=== PATIENT | male | born 1955 | race African-American/Black ===

== ENCOUNTER 2019-01-21 13:45 | Inpatient (IN) | payer MEDICARE, MEDICAID ==
[~2019-01-21] VITALS: Ht 177.8 cm; Wt 86.6 kg
[2019-01-21] VITALS (13 sets, daily range): BP systolic 105–168; BP diastolic 63–119
[2019-01-21 14:23] LABS: HEMOGLOBIN. 12.6 g/dL (14.0-18.0); MEAN CORPUSCULAR HEMOGLOBIN 30.4 pg (28.0-32.0); MEAN CORPUSCULAR VOLUME 89.6 fL (80.0-94.0); MEAN PLATELET VOLUME 9.3 fl (7.4-10.4); PLATELET 84 x1000/uL (130-400); RED BLOOD CELL COUNT 4.13 mill/uL (4.7-6.1)
[2019-01-21 14:30] LABS: INR 1.1; PROTHROMBIN TIME 11.1 sec (9.6-11.0)
[2019-01-21 14:31] LABS: CHLORIDE 106 mEq/L (98-107)
[2019-01-21 14:35] LABS: ETHANOL BLOOD < 10 mg/dL
[2019-01-21 15:10] LABS: PLATELET ESTIMATE DECREASED
[2019-01-21] MEDS ORDERED: ASPIRIN 325MG TABLET PO ONE (15:30)
[2019-01-21] MEDS ORDERED: DEXAMETHASONE 10 MG/ML VIAL IV ONE (15:30)
[2019-01-21 16:23] LABS: CLARITY URINE CLEAR (CLEAR); COLOR URINE YELLOW (YELLOW); KETONES URINE NEGATIVE (NEGATIVE); LEUKOCYTE ESTERASE URINE NEGATIVE (NEGATIVE); NITRITE URINE NEGATIVE (NEGATIVE); OCCULT BLOOD URINE NEGATIVE (NEGATIVE); PH URINE 5.5 (4.5-8.0); PROTEIN URINE NEGATIVE (NEGATIVE); SPECIFIC GRAVITY URINE 1.013 (1.005-1.030); UROBILINOGEN URINE 0.2 E.U./dL (0.2-1.0)
[2019-01-21 16:35] LABS: *AMPHETAMINES SCREEN URINE NEGATIVE (NEGATIVE); *BARBITURATES SCREEN URINE NEGATIVE (NEGATIVE); *BENZODIAZEPINES SCREEN URINE NEGATIVE (NEGATIVE); *COCAINE SCREEN URINE NEGATIVE (NEGATIVE)
[2019-01-21 16:36] LABS: CANNABINOID URINE SCREEN NEGATIVE (NEGATIVE); METHADONE URINE SCREEN NEGATIVE (NEGATIVE); OPIATES URINE SCREEN NEGATIVE (NEGATIVE); PHENCYCLIDINE URINE SCREEN NEGATIVE (NEGATIVE)
[2019-01-21] MEDS ORDERED: KETOROLAC 30MG/ML VIAL IV ONE (18:00)
[2019-01-21] MEDS ORDERED: LEVETIRACETAM 500MG PREMIX 100 ML IV ONE (19:30)
[2019-01-21] MEDS ORDERED: ONDANSETRON HCL 4MG/2ML INJ IV ONE (19:30)
[2019-01-21] MEDS ORDERED: MORPHINE SULFATE 2 MG/ML CPJ (NOT FOR IM USE) IV PRN (19:30)
[2019-01-21] MEDS ORDERED: MORPHINE SULFATE 4 MG/ML CPJ (NOT FOR IM USE) IV ONE (19:30)
[2019-01-21] MEDS ORDERED: IPRATROPIUM/ALBUTEROL 0.5-3(2.5)MG/3ML NEB INH PRN (20:15)
[2019-01-21] MEDS ORDERED: ONDANSETRON HCL 4MG/2ML INJ IV PRN (20:15)
[2019-01-21] MEDS ORDERED: ACETAMINOPHEN 650MG SUPP PR PRN (20:15)
[2019-01-21] MEDS ORDERED: LORAZEPAM 2MG/ML CPJ IV PRN (20:15)
[2019-01-21 20:45] LABS: T4 FREE 0.67 ng/dL (0.76-1.46)
[2019-01-21] MEDS ORDERED: NICARDIPINE 100 MG in SODIUM CHLORIDE 0.9% 60 ML IV PRN (21:30)
[2019-01-21] MEDS: NICARDIPINE 100 MG in SODIUM CHLORIDE 0.9% 60 ML IV PRN (22:03)
[2019-01-21] MEDS: DEXT 5%/LACTATED RINGERS 1,000 ML IV SCH (22:04)
[2019-01-21 22:11] LABS: FOLIC ACID (FOLATE) SERUM 15.8 ng/mL (>5.38)
[2019-01-21] MEDS ORDERED: LEVETIRACETAM 500MG in SODIUM CHLORIDE 0.9% 100ML IV NR (22:30)
[2019-01-21 23:07] LABS: CREATINE KINASE MB FRACTION 5.3 ng/mL (0.5-3.6)
[2019-01-22] VITALS (91 sets, daily range): BP systolic 83–176; BP diastolic 24–111
[2019-01-22] MEDS: DEXAMETHASONE 4MG/ML 1ML VIAL IV SCH ×4 (02:19→18:39)
[2019-01-22 05:49] LABS: CREATINE KINASE MB FRACTION 6.1 ng/mL (0.5-3.6)
[2019-01-22] MEDS ORDERED: LEVE500T19 PO (07:38)
[2019-01-22] MEDS ORDERED: SPIR50TA5 PO (07:38)
[2019-01-22] MEDS ORDERED: HYDR100T26 MT (07:38)
[2019-01-22] MEDS ORDERED: CALC0.5C10 PO (07:38)
[2019-01-22] MEDS ORDERED: APIX5TAB PO (07:38)
[2019-01-22] MEDS ORDERED: TRAZ-251 PO (07:38)
[2019-01-22] MEDS ORDERED: DEXA4TAB PO (07:38)
[2019-01-22] MEDS ORDERED: BENA40TA9 PO (07:38)
[2019-01-22] MEDS ORDERED: NIFE20CA PO (07:38)
[2019-01-22] MEDS ORDERED: LABE200T28 PO (07:38)
[2019-01-22] MEDS ORDERED: MAGN400C PO (07:38)
[2019-01-22] MEDS ORDERED: PROT40 PO (07:38)
[2019-01-22] MEDS: PANTOPRAZOLE SODIUM 40 MG/VIAL IV SCH (08:48)
[2019-01-22] MEDS: LEVETIRACETAM 500MG in SODIUM CHLORIDE 0.9% 100ML IV SCH ×2 (08:49→22:59)
[2019-01-22] MEDS ORDERED: LEVETIRACETAM 500MG PREMIX 100 ML IV SCH (09:00)
[2019-01-22] MEDS: DEXT 5%/LACTATED RINGERS 1,000 ML IV SCH (18:40)
[2019-01-23] VITALS (63 sets, daily range): BP systolic 108–171; BP diastolic 46–124
[2019-01-23] MEDS: DEXAMETHASONE 4MG/ML 1ML VIAL IV SCH ×4 (00:50→17:52)
[2019-01-23 05:13] LABS: HEMATOCRIT. 36.8 % (42.0-52.0); HEMOGLOBIN. 12.5 g/dL (14.0-18.0); MEAN CORPUSCULAR HEMOGLOBIN 30.4 pg (28.0-32.0); MEAN CORPUSCULAR VOLUME 89.7 fL (80.0-94.0); MEAN PLATELET VOLUME 9.7 fl (7.4-10.4); PLATELET 88 x1000/uL (130-400); RED CELL DISTRIBUTION WIDTH 14.9 % (11.6-14.6)
[2019-01-23] MEDS: NICARDIPINE 100 MG in SODIUM CHLORIDE 0.9% 60 ML IV PRN (06:44)
[2019-01-23 07:17] LABS: PLATELET ESTIMATE SLIGHTLY DECREASED
[2019-01-23] MEDS: LEVETIRACETAM 500MG in SODIUM CHLORIDE 0.9% 100ML IV SCH ×2 (09:07→21:36)
[2019-01-23] MEDS ORDERED: CLONIDINE 0.1MG TABLET PO PRN (09:30)
[2019-01-23] MEDS: LABETALOL HCL 300MG TABLET PO SCH ×2 (11:45→21:36)
[2019-01-23] MEDS: DOCUSATE SODIUM SUGAR FREE 100MG/10ML UDC NG SCH ×2 (11:45→17:52)
[2019-01-23] MEDS: FUROSEMIDE 40MG/4ML VIAL IVP SCH ×2 (11:46→17:52)
[2019-01-23] MEDS: NIFEDIPINE XL 60MG TAB PO SCH (11:46)
[2019-01-23] MEDS: PANTOPRAZOLE SODIUM 40 MG/VIAL IV SCH (13:00)
[2019-01-23] MEDS: DEXT 5%/LACTATED RINGERS 1,000 ML IV SCH ×2 (13:01→23:30)
[2019-01-23] MEDS: HYDRALAZINE HCL 100MG TABLET PO SCH ×2 (13:01→21:36)
[2019-01-23] MEDS: SPIRONOLACTONE 25MG TABLET PO SCH (17:52)
[2019-01-23] MEDS ORDERED: LACTULOSE 20G/30ML UDC PO PRN (21:00)
[2019-01-24] VITALS (17 sets, daily range): BP systolic 94–128; BP diastolic 52–77
[2019-01-24] MEDS: DEXAMETHASONE 4MG/ML 1ML VIAL IV SCH ×3 (00:09→11:39)
[2019-01-24] MEDS: HYDRALAZINE HCL 100MG TABLET PO SCH ×2 (06:21→20:57)
[2019-01-24] MEDS: SPIRONOLACTONE 25MG TABLET PO SCH (06:21)
[2019-01-24] MEDS: FUROSEMIDE 40MG/4ML VIAL IVP SCH (07:15)
[2019-01-24] MEDS: PANTOPRAZOLE SODIUM 40 MG/VIAL IV SCH (08:00)
[2019-01-24] MEDS: LEVETIRACETAM 500MG in SODIUM CHLORIDE 0.9% 100ML IV SCH (08:00)
[2019-01-24] MEDS: DOCUSATE SODIUM SUGAR FREE 100MG/10ML UDC NG SCH (08:01)
[2019-01-24] MEDS: NIFEDIPINE XL 60MG TAB PO SCH (08:01)
[2019-01-24] MEDS: LABETALOL HCL 300MG TABLET PO SCH ×2 (08:01→20:58)
[2019-01-24] MEDS ORDERED: DEXAMETHASONE 4MG/ML 1ML VIAL PO SCH (12:00)
[2019-01-24] MEDS ORDERED: DOCUSATE SODIUM SUGAR FREE 100MG/10ML UDC PO SCH (17:00)
[2019-01-24] MEDS ORDERED: DEXAMETHASONE 4MG TABLET PO SCH (18:00)
[2019-01-24] MEDS: FUROSEMIDE 40MG TABLET PO SCH (20:56)
[2019-01-24] MEDS: LEVETIRACETAM 500MG/5ML CUP PO SCH (20:56)
[2019-01-25] VITALS: BP 115/80
[2019-01-25 04:00] VITALS: BP 128/77
[2019-01-25] MEDS: SPIRONOLACTONE 25MG TABLET PO SCH (06:26)
[2019-01-25] MEDS: HYDRALAZINE HCL 100MG TABLET PO SCH (06:26)
[2019-01-25] MEDS ORDERED: PANTOPRAZOLE 40MG DR TABLET PO SCH (06:30)
[2019-01-25 08:00] VITALS: BP 126/67
[2019-01-25] MEDS: LABETALOL HCL 300MG TABLET PO SCH (09:13)
[2019-01-25] MEDS: LEVETIRACETAM 500MG/5ML CUP PO SCH (09:13)
[2019-01-25] MEDS: NIFEDIPINE XL 60MG TAB PO SCH (09:14)
[2019-01-25] MEDS: FUROSEMIDE 40MG TABLET PO SCH (09:14)
[2019-01-25 11:50] VITALS: BP 18/126
[2019-01-25 12:00] VITALS: BP 133/75
[2019-01-25 20:00] VITALS: BP 100/52
== END 2019-01-25 13:30 | DRG 280 ==
LOC: ER 13:45 → SUPCPDRO 18:45 → MICUSO 19:16 → EDBEDREQSVC 19:21 → ENRESERV 19:42 → 8WST 01-24 15:42
PROVIDERS: ADMIT Internal Medicine; ATTEND Internal Medicine
DX: I21.4 Non-ST elevation (NSTEMI) myocardial infarction (principal); G92 Toxic encephalopathy; E44.0 Moderate protein-calorie malnutrition; C71.9 Malignant neoplasm of brain, unspecified; N17.9 Acute kidney failure, unspecified; D63.8 Anemia in other chronic diseases classified elsewhere; E11.9 Type 2 diabetes mellitus without complications; E78.00 Pure hypercholesterolemia, unspecified; R29.6 Repeated falls; G40.909 Epilepsy, unspecified, not intractable, without status epilepticus; I10 Essential (primary) hypertension; Z60.2 Problems related to living alone; Z86.718 Personal history of other venous thrombosis and embolism; Z86.73 Personal history of transient ischemic attack (TIA), and cerebral infarction without residual deficits; Z93.3 Colostomy status; Z92.3 Personal history of irradiation; Z79.899 Other long term (current) drug therapy; Z68.27 Body mass index [BMI] 27.0-27.9, adult
CPT/HCPCS: 36415; 70553; 71045; 80048; 80061; 80305; 80320; 82550; 82553; 82607; 82746; 82962; 83036; 83540; 83550; 83605; 83735; 84439; 84443; 84484; 92610; 93005; 93306; 93970; 93971; 96374; 96375; 97162; 99285; C9113; J1100; J1885; J1940; J1953; J2270; J3490; J7050; J8540; G0480

== ENCOUNTER 2019-03-30 20:14 | Inpatient (IN) | payer MEDICARE, MEDICAID ==
[~2019-03-30] VITALS: Ht 172.7 cm; Wt 77.1 kg
[~2019-03-30 20:14] MED LIST: APIX5TAB PO; BENA40TA9 PO; CALC0.5C10 PO; DEXA4TAB PO; HYDR100T26 MT; LABE200T28 PO; LEVE500T19 PO; MAGN400C PO; NIFE20CA PO; PROT40 PO; SPIR50TA5 PO; TRAZ-251 PO
[2019-03-30] MEDS ORDERED: TRAMADOL 50MG TABLET PO PRN (23:00)
[2019-03-30] MEDS ORDERED: DOCUSATE SODIUM 100MG CAPSULE PO PRN (23:00)
[2019-03-30] MEDS ORDERED: NITROGLYCERIN 0.4MG TABLET SL SL PRN (23:00)
[2019-03-30] MEDS ORDERED: ZOLPIDEM TARTRATE 5MG TABLET PO PRN (23:00)
[2019-03-30] MEDS ORDERED: GUAIFENESIN 200MG/10ML SUGAR FREE UDC PO PRN (23:00)
[2019-03-30] MEDS ORDERED: MAGNESIUM/ALUMINUM HYDROXIDE/SIMETHICONE 30ML UDC PO PRN (23:00)
[2019-03-30] MEDS ORDERED: IPRATROPIUM/ALBUTEROL 0.5-3(2.5)MG/3ML NEB HHN PRN (23:00)
[2019-03-30] MEDS ORDERED: ONDANSETRON HCL 4MG/2ML INJ IV PRN (23:00)
[2019-03-30 23:04] LABS: CHLORIDE 103 mEq/L (98-107)
[2019-03-30 23:07] LABS: BASOPHILS % 0.6 % (0.0-2.0); EOSINOPHILS % 0.5 % (0.0-5.0); HEMATOCRIT. 35.6 % (42.0-52.0); HEMOGLOBIN. 11.7 g/dL (14.0-18.0); LYMPHOCYTES % 13.3 % (20.0-50.0); MEAN CORPUSCULAR HEMOGLOBIN 31.1 pg (28.0-32.0); MEAN CORPUSCULAR VOLUME 94.4 fL (80.0-94.0); MEAN PLATELET VOLUME 8.2 fl (7.4-10.4); MONOCYTES % 6.5 % (2.0-8.0); NEUTROPHILS % 79.1 % (40.0-76.0); PLATELET 88 x1000/uL (130-400); RED BLOOD CELL COUNT 3.77 mill/uL (4.7-6.1); RED CELL DISTRIBUTION WIDTH 15.5 % (11.6-14.6)
[2019-03-30 23:11] LABS: PROTHROMBIN TIME 10.7 sec (9.6-11.0)
[2019-03-30 23:20] LABS: CLARITY URINE TURBID (CLEAR); COLOR URINE YELLOW (YELLOW); KETONES URINE NEGATIVE (NEGATIVE); LEUKOCYTE ESTERASE URINE 3+ (NEGATIVE); NITRITE URINE NEGATIVE (NEGATIVE); OCCULT BLOOD URINE NEGATIVE (NEGATIVE); PROTEIN URINE 2+ (NEGATIVE); SPECIFIC GRAVITY URINE 1.014 (1.005-1.030); UROBILINOGEN URINE 0.2 E.U./dL (0.2-1.0)
[2019-03-30] MEDS ORDERED: CEFTRIAXONE 1 G PREMIX 50 ML IV ONE (23:30)
[2019-03-31] MEDS ORDERED: SODIUM CHLORIDE 0.9% 500 ML IV NR (01:30)
[2019-03-31] MEDS ORDERED: AZITHROMYCIN 500 MG in DEXT 5% WATER 250 ML IV NR (02:00)
[2019-03-31 02:18] VITALS: BP 144/99
[2019-03-31 04:00] VITALS: BP 132/101
[2019-03-31] MEDS: DEXT 5%/LACTATED RINGERS 1,000 ML IV SCH ×2 (04:15→16:07)
[2019-03-31] MEDS ORDERED: DEXAMETHASONE 4MG/ML 1ML VIAL IV SCH (06:00)
[2019-03-31 08:00] VITALS: BP 137/85
[2019-03-31] MEDS: ENOXAPARIN 30MG/0.3ML SYR SUBCUT SCH (09:00)
[2019-03-31] MEDS ORDERED: LEVETIRACETAM 500MG PREMIX 100 ML IV SCH (09:00)
[2019-03-31] MEDS: PANTOPRAZOLE SODIUM 40 MG/VIAL IV SCH (09:06)
[2019-03-31] MEDS: FUROSEMIDE 40MG/4ML VIAL IVP SCH ×2 (09:06→21:50)
[2019-03-31] MEDS: LEVETIRACETAM 500MG in SODIUM CHLORIDE 0.9% 100ML IV SCH ×2 (09:06→21:51)
[2019-03-31] MEDS: SPIRONOLACTONE 25MG TABLET PO SCH ×2 (09:08→21:50)
[2019-03-31] MEDS ORDERED: NA PHOS,M-B/NA PHOS,DI-BA ENEMA 118ML PR PRN (09:15)
[2019-03-31] MEDS ORDERED: DEXTROSE 50% WATER 50ML SYRINGE IV PRN (11:00)
[2019-03-31 12:00] VITALS: BP 124/78
[2019-03-31] MEDS: CEFTRIAXONE 1 G PREMIX 50 ML IV SCH (12:14)
[2019-03-31] MEDS: BLOOD SUGAR DIAGNOSTIC STRIP TEST SCH ×3 (12:30→21:00)
[2019-03-31] MEDS: AZITHROMYCIN 500 MG in DEXT 5% WATER 250 ML IV SCH (12:34)
[2019-03-31] MEDS: LORAZEPAM 2MG/ML CPJ IV PRN (12:35)
[2019-03-31] MEDS: INSULIN LISPRO 100 UNITS/ML SUBCUT SCH ×3 (12:50→21:00)
[2019-03-31] MEDS: LACTULOSE 20G/30ML UDC PO SCH ×2 (13:56→21:51)
[2019-03-31 16:00] VITALS: BP 121/77
[2019-03-31] MEDS: MORPHINE SULFATE 2 MG/ML CPJ (NOT FOR IM USE) IV PRN (19:13)
[2019-03-31 20:00] VITALS: BP 147/96
[2019-03-31] MEDS: DEXAMETHASONE 4MG TABLET PO SCH (21:50)
[2019-04-01] VITALS (7 sets, daily range): BP systolic 111–166; BP diastolic 69–97
[2019-04-01] MEDS: LORAZEPAM 2MG/ML CPJ IV PRN ×5 (03:06→22:23)
[2019-04-01] MEDS: MORPHINE SULFATE 2 MG/ML CPJ (NOT FOR IM USE) IV PRN ×4 (05:23→20:36)
[2019-04-01] MEDS: LACTULOSE 20G/30ML UDC PO SCH ×3 (06:00→22:30)
[2019-04-01] MEDS: DEXT 5%/LACTATED RINGERS 1,000 ML IV SCH ×2 (06:10→12:10)
[2019-04-01] MEDS: BLOOD SUGAR DIAGNOSTIC STRIP TEST SCH ×4 (07:20→21:00)
[2019-04-01] MEDS: INSULIN LISPRO 100 UNITS/ML SUBCUT SCH ×4 (07:32→21:00)
[2019-04-01] MEDS: SPIRONOLACTONE 25MG TABLET PO SCH ×2 (08:09→22:11)
[2019-04-01] MEDS: FUROSEMIDE 40MG/4ML VIAL IVP SCH ×2 (08:09→22:09)
[2019-04-01] MEDS: DEXAMETHASONE 4MG TABLET PO SCH ×2 (08:09→22:11)
[2019-04-01] MEDS: PANTOPRAZOLE SODIUM 40 MG/VIAL IV SCH (08:09)
[2019-04-01] MEDS: ENOXAPARIN 30MG/0.3ML SYR SUBCUT SCH (08:10)
[2019-04-01] MEDS: LEVETIRACETAM 500MG in SODIUM CHLORIDE 0.9% 100ML IV SCH ×2 (08:25→22:14)
[2019-04-01] MEDS: CEFTRIAXONE 1 G PREMIX 50 ML IV SCH (10:00)
[2019-04-01] MEDS: AZITHROMYCIN 500 MG in DEXT 5% WATER 250 ML IV SCH (13:44)
[2019-04-01] MEDS: SUCRALFATE 1 G/10 ML UDC PO SCH ×3 (13:44→21:00)
[2019-04-02] VITALS: BP 186/116
[2019-04-02] MEDS: MORPHINE SULFATE 2 MG/ML CPJ (NOT FOR IM USE) IV PRN ×4 (01:53→23:49)
[2019-04-02 04:00] VITALS: BP 120/94
[2019-04-02] MEDS: LACTULOSE 20G/30ML UDC PO SCH ×3 (06:33→21:10)
[2019-04-02] MEDS: INSULIN LISPRO 100 UNITS/ML SUBCUT SCH ×4 (06:49→20:18)
[2019-04-02] MEDS: BLOOD SUGAR DIAGNOSTIC STRIP TEST SCH ×4 (06:50→20:08)
[2019-04-02 08:00] VITALS: BP 136/105
[2019-04-02] MEDS: FUROSEMIDE 40MG/4ML VIAL IVP SCH ×2 (08:36→20:00)
[2019-04-02] MEDS: LORAZEPAM 2MG/ML CPJ IV PRN ×2 (08:37→19:52)
[2019-04-02] MEDS: PANTOPRAZOLE SODIUM 40 MG/VIAL IV SCH (08:37)
[2019-04-02] MEDS: DEXAMETHASONE 4MG TABLET PO SCH ×2 (08:37→21:00)
[2019-04-02] MEDS: SUCRALFATE 1 G/10 ML UDC PO SCH ×4 (08:43→21:00)
[2019-04-02] MEDS: SPIRONOLACTONE 25MG TABLET PO SCH ×2 (08:43→21:00)
[2019-04-02] MEDS: ENOXAPARIN 30MG/0.3ML SYR SUBCUT SCH (09:00)
[2019-04-02] MEDS ORDERED: HALOPERIDOL LACTATE 5MG/ML VIAL IM NR (09:45)
[2019-04-02 12:00] VITALS: BP 143/95
[2019-04-02] MEDS ORDERED: SODIUM BICARBONATE 4% (2.4MEQ) 5ML VIAL IV ONE (13:46)
[2019-04-02] MEDS ORDERED: LIDOCAINE HCL 1% 20ML VIAL (Pyxis) INJ ONE (13:46)
[2019-04-02] MEDS: CEFTRIAXONE 1 G PREMIX 50 ML IV SCH (15:30)
[2019-04-02] MEDS: AZITHROMYCIN 500 MG in DEXT 5% WATER 250 ML IV SCH (15:30)
[2019-04-02 16:00] VITALS: BP 143/89
[2019-04-02 20:00] VITALS: BP 149/85
[2019-04-02] MEDS: LEVETIRACETAM 500MG in SODIUM CHLORIDE 0.9% 100ML IV SCH (20:01)
[2019-04-02] MEDS: DEXT 5%/LACTATED RINGERS 1,000 ML IV SCH (21:40)
[2019-04-02] MEDS ORDERED: DEXAMETHASONE 4MG TABLET PO SCH (22:00)
[2019-04-02] MEDS: DEXAMETHASONE 4MG/ML 1ML VIAL IV SCH (22:55)
[2019-04-03] VITALS: BP 156/97
[2019-04-03] MEDS: LORAZEPAM 2MG/ML CPJ IV PRN ×5 (01:21→20:00)
[2019-04-03 04:00] VITALS: BP 150/97
[2019-04-03] MEDS: LACTULOSE 20G/30ML UDC PO SCH ×3 (05:31→21:47)
[2019-04-03] MEDS: DEXAMETHASONE 4MG/ML 1ML VIAL IV SCH ×3 (05:32→21:46)
[2019-04-03] MEDS: BLOOD SUGAR DIAGNOSTIC STRIP TEST SCH ×4 (06:19→20:00)
[2019-04-03 08:00] VITALS: BP 106/78
[2019-04-03] MEDS: SPIRONOLACTONE 25MG TABLET PO SCH ×2 (09:00→20:20)
[2019-04-03] MEDS: SUCRALFATE 1 G/10 ML UDC PO SCH ×3 (09:00→16:06)
[2019-04-03] MEDS: FUROSEMIDE 40MG/4ML VIAL IVP SCH ×2 (09:18→20:00)
[2019-04-03] MEDS: PANTOPRAZOLE SODIUM 40 MG/VIAL IV SCH ×2 (09:18→19:59)
[2019-04-03] MEDS: LEVETIRACETAM 500MG in SODIUM CHLORIDE 0.9% 100ML IV SCH ×2 (09:19→21:46)
[2019-04-03] MEDS: MORPHINE SULFATE 2 MG/ML CPJ (NOT FOR IM USE) IV PRN ×4 (09:21→22:58)
[2019-04-03] MEDS: ENOXAPARIN 30MG/0.3ML SYR SUBCUT SCH (09:22)
[2019-04-03] MEDS: INSULIN LISPRO 100 UNITS/ML SUBCUT SCH ×4 (09:29→20:22)
[2019-04-03 12:00] VITALS: BP 135/88
[2019-04-03] MEDS: CEFTRIAXONE 1 G PREMIX 50 ML IV SCH (13:04)
[2019-04-03] MEDS: AZITHROMYCIN 500 MG in DEXT 5% WATER 250 ML IV SCH (15:39)
[2019-04-03 16:00] VITALS: BP 145/95
[2019-04-03 20:00] VITALS: BP 145/99
[2019-04-04] VITALS: BP 128/89
[2019-04-04] MEDS: DEXT 5%/LACTATED RINGERS 1,000 ML IV SCH ×2 (00:58→14:37)
[2019-04-04] MEDS: LORAZEPAM 2MG/ML CPJ IV PRN ×4 (01:03→16:40)
[2019-04-04 04:00] VITALS: BP 135/89
[2019-04-04] MEDS: MORPHINE SULFATE 2 MG/ML CPJ (NOT FOR IM USE) IV PRN ×3 (04:19→17:05)
[2019-04-04] MEDS: LACTULOSE 20G/30ML UDC PO SCH ×3 (05:36→21:31)
[2019-04-04] MEDS: DEXAMETHASONE 4MG/ML 1ML VIAL IV SCH ×3 (05:36→21:31)
[2019-04-04] MEDS: BLOOD SUGAR DIAGNOSTIC STRIP TEST SCH ×4 (07:26→21:06)
[2019-04-04] MEDS: INSULIN LISPRO 100 UNITS/ML SUBCUT SCH ×4 (07:50→21:00)
[2019-04-04 08:00] VITALS: BP 167/97
[2019-04-04] MEDS: SPIRONOLACTONE 25MG TABLET PO SCH ×2 (08:28→20:23)
[2019-04-04] MEDS: PANTOPRAZOLE SODIUM 40 MG/VIAL IV SCH (08:28)
[2019-04-04] MEDS: FUROSEMIDE 40MG/4ML VIAL IVP SCH ×2 (08:28→20:22)
[2019-04-04] MEDS: LEVETIRACETAM 500MG in SODIUM CHLORIDE 0.9% 100ML IV SCH ×2 (08:29→21:31)
[2019-04-04] MEDS: CEFTRIAXONE 1 G PREMIX 50 ML IV SCH (10:20)
[2019-04-04] MEDS ORDERED: BACTERIOSTATIC SODIUM CHLORIDE 0.9% 30ML VIAL IJ ONE (10:48)
[2019-04-04] MEDS: AZITHROMYCIN 500 MG in DEXT 5% WATER 250 ML IV SCH (11:38)
[2019-04-04 12:00] VITALS: BP 134/104
[2019-04-04] MEDS ORDERED: MIDAZOLAM HCL 5 MG/5 ML VIAL ONE (14:34)
[2019-04-04] MEDS ORDERED: FENTANYL CITRATE/PF 50MCG/ML 2ML VIAL ONE (14:35)
[2019-04-04] MEDS ORDERED: FENTANYL CITRATE/PF 50MCG/ML 2ML VIAL IV PRN (14:44)
[2019-04-04] MEDS ORDERED: MIDAZOLAM HCL 5 MG/5 ML VIAL IV PRN (14:45)
[2019-04-04 16:00] VITALS: BP 146/98
[2019-04-04] MEDS: CLONIDINE 0.1MG TABLET PO PRN ×2 (16:39→20:23)
[2019-04-04 20:00] VITALS: BP 165/105
[2019-04-04] MEDS: FAMOTIDINE 20MG TABLET PO SCH (20:23)
[2019-04-05] VITALS: BP 145/88
[2019-04-05] MEDS: DEXT 5%/LACTATED RINGERS 1,000 ML IV SCH ×2 (02:56→13:54)
[2019-04-05 04:00] VITALS: BP 135/70
[2019-04-05] MEDS: LACTULOSE 20G/30ML UDC PO SCH ×3 (05:22→21:34)
[2019-04-05] MEDS: DEXAMETHASONE 4MG/ML 1ML VIAL IV SCH ×3 (05:22→21:34)
[2019-04-05] MEDS: BLOOD SUGAR DIAGNOSTIC STRIP TEST SCH ×4 (06:49→20:30)
[2019-04-05] MEDS ORDERED: LORAZEPAM 2MG/ML CPJ IV PRN (07:00)
[2019-04-05] MEDS ORDERED: MORPHINE SULFATE 2 MG/ML CPJ (NOT FOR IM USE) IV PRN (07:00)
[2019-04-05 08:00] VITALS: BP 153/94
[2019-04-05] MEDS: SPIRONOLACTONE 25MG TABLET PO SCH ×2 (08:09→20:29)
[2019-04-05] MEDS: LEVETIRACETAM 500MG in SODIUM CHLORIDE 0.9% 100ML IV SCH ×2 (08:09→21:34)
[2019-04-05] MEDS: FUROSEMIDE 40MG/4ML VIAL IVP SCH ×2 (08:09→20:30)
[2019-04-05] MEDS: FAMOTIDINE 20MG TABLET PO SCH ×2 (08:09→20:29)
[2019-04-05] MEDS: CLONIDINE 0.1MG TABLET PO PRN ×2 (08:32→20:30)
[2019-04-05] MEDS: INSULIN LISPRO 100 UNITS/ML SUBCUT SCH ×4 (09:01→20:31)
[2019-04-05] MEDS: CEFTRIAXONE 1 G PREMIX 50 ML IV SCH (10:02)
[2019-04-05] MEDS: AZITHROMYCIN 500 MG in DEXT 5% WATER 250 ML IV SCH (11:30)
[2019-04-05 12:00] VITALS: BP 119/84
[2019-04-05 16:00] VITALS: BP 141/82
[2019-04-05 20:00] VITALS: BP 166/107
[2019-04-06] VITALS: BP 159/101
[2019-04-06 04:00] VITALS: BP 155/92
[2019-04-06] MEDS: LACTULOSE 20G/30ML UDC PO SCH ×3 (05:09→21:50)
[2019-04-06] MEDS: DEXAMETHASONE 4MG/ML 1ML VIAL IV SCH ×3 (05:09→21:48)
[2019-04-06] MEDS: DEXT 5%/LACTATED RINGERS 1,000 ML IV SCH ×2 (05:10→21:48)
[2019-04-06] MEDS: BLOOD SUGAR DIAGNOSTIC STRIP TEST SCH ×4 (06:51→21:00)
[2019-04-06 08:00] VITALS: BP 221/111
[2019-04-06] MEDS: FUROSEMIDE 40MG/4ML VIAL IVP SCH ×2 (10:23→21:48)
[2019-04-06] MEDS: SPIRONOLACTONE 25MG TABLET PO SCH ×2 (10:28→21:49)
[2019-04-06] MEDS: FAMOTIDINE 20MG TABLET PO SCH ×2 (10:28→21:50)
[2019-04-06] MEDS: LEVETIRACETAM 500MG in SODIUM CHLORIDE 0.9% 100ML IV SCH ×2 (10:29→21:48)
[2019-04-06] MEDS: INSULIN LISPRO 100 UNITS/ML SUBCUT SCH ×4 (10:33→22:56)
[2019-04-06 12:00] VITALS: BP 164/96
[2019-04-06] MEDS: CEFTRIAXONE 1 G PREMIX 50 ML IV SCH (12:01)
[2019-04-06] MEDS: AZITHROMYCIN 500 MG in DEXT 5% WATER 250 ML IV SCH (12:18)
[2019-04-06 16:00] VITALS: BP 155/101
[2019-04-06] MEDS: ACETAMINOPHEN 325MG TABLET PO PRN (17:04)
[2019-04-06] MEDS: CLONIDINE 0.1MG TABLET PO PRN (18:06)
[2019-04-06 20:00] VITALS: BP 157/111
[2019-04-07] VITALS: BP 157/106
[2019-04-07] MEDS: CLONIDINE 0.1MG TABLET PO PRN (00:43)
[2019-04-07 04:00] VITALS: BP 164/90
[2019-04-07] MEDS: LACTULOSE 20G/30ML UDC PO SCH ×3 (06:34→22:00)
[2019-04-07] MEDS: BLOOD SUGAR DIAGNOSTIC STRIP TEST SCH ×4 (06:35→21:00)
[2019-04-07] MEDS: DEXAMETHASONE 4MG/ML 1ML VIAL IV SCH (06:35)
[2019-04-07] MEDS: LEVETIRACETAM 500MG in SODIUM CHLORIDE 0.9% 100ML IV SCH (08:26)
[2019-04-07] MEDS: FUROSEMIDE 40MG/4ML VIAL IVP SCH (08:26)
[2019-04-07] MEDS: FAMOTIDINE 20MG TABLET PO SCH ×2 (08:27→22:09)
[2019-04-07] MEDS: SPIRONOLACTONE 25MG TABLET PO SCH ×2 (08:28→22:10)
[2019-04-07] MEDS: INSULIN LISPRO 100 UNITS/ML SUBCUT SCH ×4 (09:00→21:00)
[2019-04-07] MEDS ORDERED: AZITHROMYCIN 500 MG TABLET PO SCH (09:00)
[2019-04-07] MEDS: CEFTRIAXONE 1 G PREMIX 50 ML IV SCH (11:40)
[2019-04-07 11:55] LABS: CHLORIDE 122 mEq/L (98-107)
[2019-04-07] MEDS: DEXAMETHASONE 4MG TABLET PO SCH ×2 (13:28→22:10)
[2019-04-07] MEDS: SUCRALFATE 1 G/10 ML UDC PO SCH ×3 (13:28→22:10)
[2019-04-07 16:00] VITALS: BP 154/93
[2019-04-07] MEDS: ACETAMINOPHEN 325MG TABLET PO PRN (17:36)
[2019-04-07 20:00] VITALS: BP_SYST 116; BP_SYST 164; BP_DIAS 63; BP_DIAS 94
[2019-04-07] MEDS: LEVETIRACETAM 500MG TABLET PO SCH (22:10)
[2019-04-08] VITALS (7 sets, daily range): BP systolic 141–164; BP diastolic 84–97
[2019-04-08] MEDS: CLONIDINE 0.1MG TABLET PO PRN ×3 (01:27→16:42)
[2019-04-08] MEDS: LACTULOSE 20G/30ML UDC PO SCH ×3 (05:49→22:53)
[2019-04-08] MEDS: DEXAMETHASONE 4MG TABLET PO SCH ×3 (05:49→22:53)
[2019-04-08] MEDS: BLOOD SUGAR DIAGNOSTIC STRIP TEST SCH ×4 (06:33→20:22)
[2019-04-08] MEDS: SUCRALFATE 1 G/10 ML UDC PO SCH ×4 (06:34→20:22)
[2019-04-08] MEDS: SPIRONOLACTONE 25MG TABLET PO SCH ×2 (08:28→20:22)
[2019-04-08] MEDS: FAMOTIDINE 20MG TABLET PO SCH ×2 (08:28→20:22)
[2019-04-08] MEDS: FUROSEMIDE 20MG TABLET PO SCH (08:29)
[2019-04-08] MEDS: LEVETIRACETAM 500MG TABLET PO SCH ×2 (08:34→20:22)
[2019-04-08] MEDS: INSULIN LISPRO 100 UNITS/ML SUBCUT SCH ×4 (08:35→20:23)
[2019-04-09] VITALS: BP 137/80
[2019-04-09 04:00] VITALS: BP 129/80
[2019-04-09] MEDS: DEXAMETHASONE 4MG TABLET PO SCH ×2 (06:49→14:26)
[2019-04-09] MEDS: LACTULOSE 20G/30ML UDC PO SCH ×3 (06:49→15:01)
[2019-04-09] MEDS: SUCRALFATE 1 G/10 ML UDC PO SCH ×2 (06:49→14:28)
[2019-04-09] MEDS: BLOOD SUGAR DIAGNOSTIC STRIP TEST SCH ×2 (06:51→12:20)
[2019-04-09] MEDS: INSULIN LISPRO 100 UNITS/ML SUBCUT SCH ×2 (07:50→12:50)
[2019-04-09 08:00] VITALS: BP 152/93
[2019-04-09] MEDS ORDERED: FAMOTIDINE 20MG TABLET PO SCH (09:00)
[2019-04-09] MEDS: SPIRONOLACTONE 25MG TABLET PO SCH (09:15)
[2019-04-09] MEDS: FUROSEMIDE 20MG TABLET PO SCH (09:15)
[2019-04-09] MEDS: LEVETIRACETAM 500MG TABLET PO SCH (09:15)
[2019-04-09] MEDS ORDERED: LEVOFLOXACIN 500MG PREMIX 100 ML IV SCH (10:15)
[2019-04-09] MEDS ORDERED: DEXTROSE 5% WATER 1,000 ML IV SCH (10:15)
[2019-04-09 12:00] VITALS: BP 159/88
[2019-04-09 13:15] VITALS: BP 152/93
== END 2019-04-09 15:53 | DRG 91 ==
LOC: ER 20:45 → 6EST 22:13 → ENRESERV 22:26 → 6EST 03-31 12:23
PROVIDERS: ADMIT Internal Medicine; ATTEND Internal Medicine
PROC: 05H533Z Insertion of Infusion Device into Right Subclavian Vein, Percutaneous Approach (ICD-10-PCS; principal; 2019-04-02)
PROC: B5161ZA Fluoroscopy of Right Subclavian Vein using Low Osmolar Contrast, Guidance (ICD-10-PCS; 2019-04-02)
PROC: B546ZZA Ultrasonography of Right Subclavian Vein, Guidance (ICD-10-PCS; 2019-04-02)
PROC: 0DH63UZ Insertion of Feeding Device into Stomach, Percutaneous Approach (ICD-10-PCS; 2019-04-04)
DX: G92 Toxic encephalopathy (principal); N17.0 Acute kidney failure with tubular necrosis; J18.9 Pneumonia, unspecified organism; E43 Unspecified severe protein-calorie malnutrition; C71.9 Malignant neoplasm of brain, unspecified; N39.0 Urinary tract infection, site not specified; E87.0 Hyperosmolality and hypernatremia; I12.9 Hypertensive chronic kidney disease with stage 1 through stage 4 chronic kidney disease, or unspecified chronic kidney disease; D63.8 Anemia in other chronic diseases classified elsewhere; E11.22 Type 2 diabetes mellitus with diabetic chronic kidney disease; E11.65 Type 2 diabetes mellitus with hyperglycemia; F03.90 Unspecified dementia, unspecified severity, without behavioral disturbance, psychotic disturbance, mood disturbance, and anxiety; K59.00 Constipation, unspecified; Y95 Nosocomial condition; N18.9 Chronic kidney disease, unspecified; G40.909 Epilepsy, unspecified, not intractable, without status epilepticus; R74.0 Nonspecific elevation of levels of transaminase and lactic acid dehydrogenase [LDH]; I25.10 Atherosclerotic heart disease of native coronary artery without angina pectoris; R13.12 Dysphagia, oropharyngeal phase; Z79.4 Long term (current) use of insulin; Z85.841 Personal history of malignant neoplasm of brain; I25.2 Old myocardial infarction; Z86.73 Personal history of transient ischemic attack (TIA), and cerebral infarction without residual deficits; Z93.1 Gastrostomy status; Z68.25 Body mass index [BMI] 25.0-25.9, adult; Z79.899 Other long term (current) drug therapy
CPT/HCPCS: 36415; 36573; 74176; 75820; 80048; 80076; 81003; 82140; 82962; 83036; 84134; 85049; 87077; 87186; 92610; 93970; 94640; 99285; C1725; C1769; C1893; C9113; J0456; J0696; J1100; J1630; J1650; J1815; J1940; J1953; J2060; J2250; J2270; J2405; J3010; J3490; J7040; J7050; J7060; J8540; A4315